=== PATIENT | female | born 1955 | race Caucasian/White ===

== ENCOUNTER 2019-05-10 16:39 | Outpatient (CLI) | payer MEDICARE, BC, SELFPAY ==
--- NOTE | ~2019-05-10 | MM_ITS ---
EXAMINATION: MM screening [facility] BI w [place] HISTORY: Screening mammogram TECHNIQUE: Craniocaudal and mediolateral oblique 3-D tomosynthesis images were obtained and synthetic 2-D images were generated. CAD analysis was submitted and interpreted. COMPARISON: Comparison to multiple prior studies sequentially, with oldest reviewed study dated 12/28. BREAST PARENCHYMAL COMPOSITION: There are scattered areas of fibroglandular density. FINDINGS: There is a new lobulated mass, in the upper outer quadrant of the right breast measuring 2. 7 x 1.8 cm. There are associated pleomorphic calcifications. There is a new focal asymmetry in the up per outer quadrant of the left breast. IMPRESSION: 1. New right breast mass measuring 2.7 x 1.8 cm. New focal left breast asymmetry. 2. Additional mammographic views and possible breast ultrasound are recommended. BI-RADS Category 0: Incomplete: Needs additional imaging evaluation. Reviewed, dictated and finalized at location A. T LINE SUPERVISOR IMPRESSION: 1. New right breast mass measuring 2.7 x 1.8 cm. New focal left breast asymmetr y. 2. Additional mammographic views and possible breast ultrasound are recommended . BI-RADS Category 0: Incomplete: Needs additional imaging evaluation.
== END 2019-05-10 16:40 | disposition home or self-care (01) ==
LOC: ANHIMG 16:43
PROVIDERS: PCP Physician Assistant; Visit Provider Physician Assistant
DX: Z12.31 Encounter for screening mammogram for malignant neoplasm of breast (principal); R92.8 Other abnormal and inconclusive findings on diagnostic imaging of breast
CPT/HCPCS: 77063; 77067

== ENCOUNTER 2019-06-02 12:47 | Outpatient (CLI) | payer MEDICARE, BC, SELFPAY ==
--- NOTE | ~2019-06-02 | MMUS_ITS ---
EXAMINATION: MM diagnostic mammo BI, US breast BI limited HISTORY: Bilateral breast masses on screening mammogram TECHNIQUE: Additional 3-D tomosynthesis images of the breasts were performed and synthetic 2-D images were generated. CAD analysis was submitted and interpreted. High resolution limited bilateral breast ultrasound was performed. COMPARISON: 05/10/2019, 03/19/2015, 12/28/2012 FINDINGS: MAMMOGRAPHIC FINDINGS: Right breast: There is a 2.2 x 2.1 cm irregular high density mass with spiculated margins and pleomor phic calcification in the middle third of the outer breast at the 9:00 location 4.5 cm from the nippl e. Left breast: There is a 6 mm irregular, equal density mass with spiculated margins at the 12:00 locat ion 6 cm from the nipple. No associated suspicious calcification is identified. ULTRASOUND: Right breast: There is a 2.8 x 1.7 cm oval, irregular, parallel, hypoechoic mass with angular and sasha rolobulated margins at the 10:00 location 1 cm from the nipple corresponding to the mammographic find ing in question. The mass demonstrates posterior acoustic shadowing and internal vascularity. Left breast: There is a subtle 6 mm oval, not parallel, hypoechoic mass with indistinct margins poste rior shadowing, and no definite internal vascularity at the 12:00 location 4 cm from the nipple. IMPRESSION: 1. Suspicious bilateral breast masses. 2. Bilateral ultrasound guided biopsy is recommended. BI-RADS category 5, highly suggestive of malignancy. Reviewed, dictated and finalized at location A. CTOR OF PROGRAMMING IMPRESSION: 1. Suspicious bilateral breast masses. 2. Bilateral ultrasound guided biopsy is recommended. BI-RADS category 5, highly suggestive of malignancy.
== END 2019-06-02 12:48 | disposition home or self-care (01) ==
LOC: ANHIMG 12:51
PROVIDERS: PCP Physician Assistant; Visit Provider Physician Assistant
DX: R92.8 Other abnormal and inconclusive findings on diagnostic imaging of breast (principal)
CPT/HCPCS: 76642; 77066

== ENCOUNTER 2022-06-26 12:41 | Outpatient (CLI) | payer MEDICARE, BC, SELFPAY ==
--- NOTE | ~2022-06-26 | DEXA_ITS ---
Bone Density Report Name: SELENE SANTIAGO Age: 67 Sex: Female Ethnicity: White Date of : 1955 Indication: postmenopausal; screening for osteoporosis; height loss; cancer; hysterectomy; Referring Provider: NESHA, JIMENEZ Varma Study: Bone densitometry was performed. Exam Date: June 26, 2022 Accession number: [id number] Bone Density: Region BMD T-score Z-score Classification AP Spine(L1-L4) 1.129 0.7 2.8 Normal Femoral Neck (Left) 0.763 -0.8 1.0 Normal Total Hip (Left) 0.884 -0.5 1.0 Normal Femoral Neck (Right) 0.755 -0.8 0.9 Normal Total Hip (Right) 0.900 -0.3 1.1 Normal Total Hip Mean 0.892 -0.4 1.1 Normal World Health Organization criteria for BMD impression classify patients as: Normal (T-score at or above -1.0), Osteopenia (T-score between -1.0 and -2.5), or Osteoporosis (T-score at or below -2.5). 10-year Fracture Risk: FRAX not reported because: All T-scores for Spine Total, Hip Total, Femoral Neck at or above -1.0 Previous Exams: Region Exam Age BMD T-score BMD Change BMD Change Date g/cm2 vs Baseline vs Previous AP Spine (L1-L4) 06/26/2022 67 1.129 0.7 0.106 (10.3%)# 0.106 (10.3%)# 05/30/2019 63 1.024 -0.2 Total Hip(Left) 06/26/2022 67 0.884 -0.5 -0.025 (-2.8%) -0.025 (-2.8%) 05/30/2019 63 0.910 -0.3 Total Hip(Right) 06/26/2022 67 0.900 -0.3 -0.057 (-5.9%) -0.057 (-5.9%) 05/30/2019 63 0.957 0.1 *Denotes significance at 95% confidence level, LSC for AP Spine = 0.022 g/cm2, LSC for Total Hip = 0.027 g/cm2 # Denotes dissimilar scan types or analysis methods Clinical Information Provided by Patient: Has used the following medications: Vitamin D, Calcium Has the following medical conditions: Cancer, Hysterectomy Patient maximum height was 65.5 Menopause Age: 39 Drinks caffeinated beverages Onset of menses at age 8 Number of children 2 Impression: The patient has normal bone mass. No significant bone loss was observed. Discussion: BONE DENSITY IS ABOVE THE MINIMUM DESIRABLE LEVEL AT ALL SKELETAL SITES TESTED. This patient?s bone mineral density is above the minimum desirable level (T-score -1.0 or better) at all sites measured. The patient should follow a healthful lifestyle (good nutrition with adequate calcium and vitamin D, and appropriate weight-bearing exercise). Follow-Up: Consider repeating this study in 5 years or sooner if there is some new clinical indication. Repo
== END 2022-06-26 12:42 | disposition home or self-care (01) ==
PROVIDERS: PCP Physician Assistant; Visit Provider Internal Medicine Medical Oncology
DX: C50.411 Malignant neoplasm of upper-outer quadrant of right female breast (principal); Z79.811 Long term (current) use of aromatase inhibitors; Z17.0 Estrogen receptor positive status [ER+]
CPT/HCPCS: 77080